=== PATIENT | male | born 1965 | race American Indian/Alaskan Native ===

== ENCOUNTER 2021-01-13 06:05 | Day surgery (SDC) | payer BC ==
[~2021-01-13 06:05] MED LIST: ceFAZolin/Water 2 GM/20 ML 2 GM/20 ML SYRINGE IV NR
[2021-01-13] MEDS ORDERED: SODIUM CHLORIDE 0.9% 1000 ML 1,000 ML ONE (06:15)
[2021-01-13 07:04] LABS: Hematocrit 31.6 % (35.5-45.6); Hemoglobin 10.5 gm/dl (11.8-15.2); Mean Corpuscular HGB Conc 33 % (32-34); Mean Corpuscular Volume 82 fl (84-94); Platelet Count 272 K/mm3 (140-440); Red Blood Count 3.84 M/mm3 (3.65-5.03); Red Cell Distribution Width 19.2 % (13.2-15.2)
[2021-01-13 07:14] LABS: Calcium 9.3 mg/dL (8.4-10.2)
[2021-01-13] MEDS ORDERED: HYDROmorphone 1 MG/1 ML INJ IV PRN ×2 (07:20)
[2021-01-13] MEDS ORDERED: ONDANSETRON 4 MG/2 ML INJ IV PRN (07:20)
[2021-01-13] MEDS ORDERED: fentaNYL 100 MCG/2 ML INJ IV NR (07:20)
--- NOTE | 2021-01-13 07:22 | Anesthesia Day of Surgery ---
Anesthesia Day of Surgery - Day of Surgery Patient Examined: Yes Patient H&P Reviewed: Yes Patient is NPO: Yes
--- NOTE | 2021-01-13 07:23 | Anesthesia Consultation ---
Anesthesia Consult and Med Hx Date of service: 01/13/21 - Airway Anesthetic Teeth Evaluation: Chipped ROM Head & Neck: Adequate Mental/Hyoid Distance: Adequate Mallampati Class: Class II Intubation Access Assessment: Good - Pre-Operative Health Status ASA Pre-Surgery Classification: ASA3 Proposed Anesthetic Plan: General (BLOCK; GA if needed) - Pulmonary Hx Smoking: No Hx Asthma: No Hx Respiratory Symptoms: No (+2FS) COPD: No Hx Pneumonia: Yes (HAD COVID 2019.HAD TEST IN 2020[NEG]) Hx Sleep Apnea: No (SNORES) - Cardiovascular System Hx Hypertension: Yes Hx Heart Attack/AMI: No Hx Pacemaker: No Hx Internal Defibrillator: No Hx Heart Murmur: No - Central Nervous System Hx Neuromuscular Disorder: Yes (Blind OS) Hx Seizures: No Hx Back Pain: Yes (OCC.) Hx Psychiatric Problems: No - Endocrine Hx Renal Disease: Yes (Last HD yesterday) Hx End Stage Renal Disease: Yes Hx Cirrhosis: No Hx Liver Disease: No Hx Non-Insulin Dependent Diabetes: Yes - Hematic Hx Anemia: No Hx Sickle Cell Disease: No - Other Systems Hx Alcohol Use: Yes (OCC. WINE) Hx Substance Use: No Hx Cancer: No Hx Obesity: No
[2021-01-13] MEDS ORDERED: BUPIVACAINE/PF (0.5%) 5 MG/1 ML 30 ML VIAL INFILTRATI ONE (07:25)
[2021-01-13] MEDS ORDERED: MIDAZOLAM 2 MG/2 ML INJ ONE (07:26)
[2021-01-13] MEDS ORDERED: SODIUM CHLORIDE 0.9% 1000 ML 1,000 ML IV SCH (07:30)
[2021-01-13] MEDS ORDERED: fentaNYL 100 MCG/2 ML INJ ONE (07:59)
[2021-01-13] MEDS ORDERED: KETAMINE/STERILE WATER 50 MG/ML SYRINGE ONE (08:00)
[2021-01-13] MEDS ORDERED: MIDAZOLAM 2 MG/2 ML INJ IV NR (08:00)
[2021-01-13] MEDS ORDERED: propofoL 200 MG/20 ML VIAL IV ONE ×3 (08:00→08:37)
[2021-01-13] MEDS ORDERED: LIDOCAINE PF 100 MG/5 ML (CARDIAC SYRINGE) IV ONE (09:13)
[2021-01-13] MEDS ORDERED: PHENYLEPHRINE/NS 1,000 MCG/10 ML SYRINGE (OR USE) IV ONE (09:13)
[2021-01-13] MEDS ORDERED: SODIUM CHLORIDE 0.9% IRR 1,500 ML BOTTLE IR ONE (09:21)
[2021-01-13] MEDS ORDERED: HEPARIN 10,000 UNITS/10 ML VIAL IV ONE (09:22)
[2021-01-13] MEDS ORDERED: SODIUM CHLORIDE 0.9% 500 ML IVPB IRRIGATION ONE (09:22)
--- NOTE | 2021-01-13 10:30 | Short Stay Summary ---
Short Stay Documentation Date of service: 01/13/21 Narrative H&P: See H&P - History H&P: obtained from office - Allergies and Medications Current Medications: Allergies No Known Allergies Allergy (Unverified 01/07/21 15:21) Home Medications Medication Instructions Recorded Confirmed Last Taken Type Atorvastatin 40 mg PO DAILY 01/08/21 01/13/21 01/12/21 20:00 History Glimepiride 1 mg PO DAILY 01/08/21 01/13/21 01/12/21 09:00 History Insulin Glargine 15 units SQ DAILY 01/08/21 01/13/21 01/12/21 09:00 History Wesly Multi For Men Tablet 1 tab PO DAILY 01/08/21 01/13/21 01/12/21 09:00 History Metoprolol [Lopressor TAB] 25 mg PO BID 01/08/21 01/13/21 01/12/21 17:00 History amLODIPine 10 mg PO DAILY 01/08/21 01/13/21 01/12/21 09:00 History Active Medications Hydromorphone HCl (Hydromorphone 1 Mg/1 Ml Inj) 0.25 mg IV Q10MIN PRN PRN Reason: Pain, Moderate (4-6) Stop: 01/13/21 23:00 Hydromorphone HCl (Hydromorphone 1 Mg/1 Ml Inj) 0.5 mg IV Q10MIN PRN PRN Reason: Pain , Severe (7-10) Stop: 01/13/21 23:20 Cefazolin Sodium (Ancef/Sterile Water 2 Gm/20 Ml) 2 gm in 20 mls @ 80 mls/hr IV PREOP NR; Protocol Stop: 01/13/21 23:59 Sodium Chloride (Nacl 0.9% 1000 Ml) 1,000 mls @ 42 mls/hr IV DIRECT EMEKA Midazolam HCl (Midazolam 2 Mg/2 Ml Inj) 2 mg IV PREOP NR Stop: 01/13/21 23:59 Ondansetron HCl (Ondansetron 4 Mg/2 Ml Inj) 4 mg IV ONCE PRN PRN Reason: Nausea And Vomiting Stop: 01/13/21 13:00 - Brief post op/procedure progress note Date of procedure: 01/13/21 Pre-op diagnosis: End-Stage Renal Disease Post-op diagnosis: same Procedure: Creation of Left Brachiocephalic Arteriovenous Fistula Anesthesia: MAC, regional Surgeon: KISHAN WALKER Estimated blood loss: minimal Pathology: none Condition: stable - Disposition Condition at discharge: Good Disposition: DC-01 TO HOME OR SELFCARE Short Stay Discharge Plan Activity: other (No heavy lifting with left arm for 2 weeks. Use stress ball with left hand as often as possible.) Wound: open to air, keep clean and dry, other (Okay to wash the left arm wound with soap and water but do not soak in water for 2 weeks.) Follow up with: KISHAN WALKER MD [Staff Physician] - 14 Days Prescriptions: HYDROcodone/APAP 7.5-325 [[place] 7.5/325] 1 each PO Q6HR PRN #40 tablet PRN Reason: Pain
--- NOTE | 2021-01-13 10:31 | Operative Report ---
Operative Report Operative Report: Date of procedure: 01/13/2021 Pre-operative diagnosis: End-Stage Renal Disease Post-operative diagnosis: End-Stage Renal Disease Procedure(s): Creation of left brachial Artery to Cephalic Vein Arteriovenous Fistula Surgeon: Gary Badillo MD Drywall Sander: None Anesthesia: Regional/MAC EBL: Minimal Counts: Correct Complications: None Condition: Stable Findings: Successful creation of left brachiocephalic arteriovenous fistula with palpable thrill and palpable radial pulse at the completion of the case. Specimen: None Indications: The patient is a 55-year-old male with a history of end-stage renal disease who is currently on hemodialysis through a right internal jugular permacath. He is in need of long-term dialysis access and was found to be a suitable candidate for creation of a left arm arteriovenous fistula. He was given the risk, benefits, and alternative procedures and consented to the procedure. Description of Procedure: The patient had a regional block of the patient's left arm was performed in the preoperative area prior to being transported to the operating room. Once the regional block was performed the patient was transported to the operating room and adequate sedation was given. When the patient was sedated a timeout was performed and the patient's left arm was then prepped and draped in normal sterile fashion. A transverse incision was then made and carried down to the cephalic vein using sharp dissection. The vein was dissected out both proximally and distally and suture ligated and divided distally. I flushed the vein with heparinized saline and flow was controlled with a bulldog clamp. I then dissected out the brachial artery through this incision circumferentially both proximal and distal and controlled the artery with vessel loops. I systemically heparinized the patient with 3000 units of heparin IV and used angl ed DeBakey clamps to control flow through the artery. I created an arteriotomy using an 11 blade and Fortune scissors. I created an end to side anastomosis between the cephalic vein and brachial artery using a 6-0 Prolene in running fashion. Prior to completing the anastomosis I flashed the artery both proximally and distally and then flushed the anastomosis with heparinized saline to remove any debris. I then completed the anastomosis and removed all clamps allowing flow into the fistula which had an adequate thrill. I achieved hemostasis with a combination of Quick Clot and electrocautery. Once hemostasis had been achieved I closed the wound in 2 layers using a 3-0 Vicryl in a running fashion in the deep dermal layer and a 4-0 Monocryl in running fashion in the subcuticular layer. I then dressed the wound with Dermabond. The patient tolerated the procedure well. All sponge, needle, and instrument counts were correct. The patient was taken to the recovery area in stable condition.
[2021-01-13 12:17] VITALS: BP 125/78
--- NOTE | 2021-01-13 19:19 | Post Anesthesia Evaluation ---
- Post Anesthesia Evaluation Patient Participated: Yes Airway Patent: Yes Stable Respiratory Function: Yes Nausea/Vomiting: No Temp > 96.8F: Yes Pain Manageable: Yes Adequeate Hydration: Yes Anesthesia Complications: No Block Receding Appropriately: Yes Patient on Ventilator: No
== END 2021-01-13 12:10 | disposition home or self-care (01) ==
LOC: OR 06:05
PROVIDERS: ATTEND Surgery Vascular Surgery
DX: I12.0 Hypertensive chronic kidney disease with stage 5 chronic kidney disease or end stage renal disease (principal); E11.22 Type 2 diabetes mellitus with diabetic chronic kidney disease; N18.6 End stage renal disease; E78.00 Pure hypercholesterolemia, unspecified; M19.90 Unspecified osteoarthritis, unspecified site; D50.9 Iron deficiency anemia, unspecified; Z72.89 Other problems related to lifestyle; Z87.01 Personal history of pneumonia (recurrent); Z98.890 Other specified postprocedural states; Z79.899 Other long term (current) drug therapy; Z79.4 Long term (current) use of insulin
CPT/HCPCS: 36415; 36821; 64415; 80048; 82962; 85027; J0690; J1644; J2001; J2250; J2370; J2704; J3010; J7030; J7040; 64450; J3490

== ENCOUNTER 2021-08-13 06:27 | Day surgery (SDC) | payer BC, MEDICARE ==
[2021-08-13] MEDS ORDERED: SODIUM CHLORIDE 0.9% 500 ML 500 ML IV SCH (08:00)
[2021-08-13] MEDS ORDERED: HEPARIN/NS 5000 UNIT/500ML 1,000 ML IR ONE (08:27)
[2021-08-13] MEDS ORDERED: fentaNYL 100 MCG/2 ML INJ ONE (08:28)
[2021-08-13] MEDS ORDERED: LIDOCAINE (2%) 20 MG/1 ML VIAL 20 ML MDV INFILTRATI ONE (08:28)
[2021-08-13 09:07] LABS: INR 0.94 (0.87-1.13); Partial Thromboplastin Time 32.2 Sec. (24.2-36.6)
[2021-08-13] MEDS ORDERED: ONDANSETRON 4 MG/2 ML INJ ONE (09:11)
[2021-08-13 09:12] LABS: Hematocrit 35.8 % (35.5-45.6); Hemoglobin 11.4 gm/dl (11.8-15.2); Mean Corpuscular HGB Conc 32 % (32-34); Mean Corpuscular Volume 85 fl (84-94); Platelet Count 386 K/mm3 (140-440); Red Cell Distribution Width 18.7 % (13.2-15.2)
[2021-08-13] MEDS ORDERED: ONDANSETRON 4 MG/2 ML INJ IV ONE (09:29)
[2021-08-13 09:57] LABS: Calcium 9.3 mg/dL (8.4-10.2)
[2021-08-13] MEDS: MIDAZOLAM 2 MG/2 ML INJ ONE ×2 (10:35→11:15)
[2021-08-13] MEDS ORDERED: hydrALAZINE 20 MG/1 ML INJ ONE (10:45)
[2021-08-13] MEDS ORDERED: ALTEPLASE 2 MG INJ ONE (10:47)
[2021-08-13] MEDS ORDERED: WATER FOR INJ Sterile (PF) 10 ML ONE (10:47)
[2021-08-13] MEDS: HEPARIN 10,000 UNITS/10 ML VIAL ONE ×2 (10:51→11:48)
--- NOTE | 2021-08-13 12:53 | Short Stay Summary ---
Short Stay Documentation Date of service: 08/13/21 Narrative H&P: See H&P - History H&P: obtained from office - Allergies and Medications Current Medications: Allergies No Known Allergies Allergy (Unverified 01/07/21 15:21) Home Medications Medication Instructions Recorded Confirmed Last Taken Type Atorvastatin 40 mg PO DAILY 01/08/21 08/13/21 08/12/21 History 1 TAB Wesly Multi For Men Tablet 1 tab PO DAILY 01/08/21 08/13/21 08/12/21 History 1 TAB Metoprolol [Lopressor TAB] 25 mg PO BID 01/08/21 08/13/21 08/12/21 History 25 MG amLODIPine 10 mg PO DAILY 01/08/21 08/13/21 08/12/21 History 10 MG Active Medications Sodium Chloride (Nacl 0.9% 500 Ml) 500 mls @ 50 mls/hr IV DIRECT EMEKA Stop: 08/13/21 20:00 - Brief post op/procedure progress note Date of procedure: 08/13/21 Pre-op diagnosis: Complications of Dialysis Access Post-op diagnosis: same Procedure: 1. Ultrasound Guided Access Left Arm Arteriovenous Fistula with 7 Dutch Sheath Venous 2. Access Left Arm Arteriovenous Fistula with 6 Dutch Sheath Arterial 3. Diagnostic Fistulagram with Central Venogram 4. Percutaneous Pharmacomechanical Thrombectomy with 6 mg TPA, Trertolla Device, and 6 Dutch Multipurpose Guide Catheter 5. Angioplasty and Stent of Left Arm Arteriovenous Fistula with 8 x 100 Calvin Balloon, 7 x10 cm & 8 x 5 cm Viabahn Stent Grafts in the Venous Outflow, and a 6 x 40 Conquest in the Arterial Inflow 6. Catheter in Left Brachial Artery 7. Diagnostic Left Upper Extremity Arteriogram 8. Radiologic Supervision with Interpretation 9. Monitored Moderate Sedation (Total Anesthesia Time: 119 Minutes) Anesthesia: local, other (Monitored Moderate Sedation) Surgeon: KISHAN WALKER Estimated blood loss: minimal Pathology: none Condition: stable - Disposition Condition at discharge: Good Disposition: 01 HOME / SELF CARE / HOMELESS Short Stay Discharge Plan Activity: other (Do Not use left arm fistula until cleared by vascular surgeon) Wound: remove dressing (in 24 hours), other (After removung the dressings, okay to wash the left arm with soap and water but do not soak in water for 2 weeks.) Follow up with: KISHAN WALKER MD [Staff Physician] - 14 Days Prescriptions: Apixaban [Eliquis] 5 mg PO BID #60 tablet HYDROcodone/APAP 5-325 [[place] 5/325] 1 each PO Q4HR PRN #24 tablet PRN Reason: Pain Clopidogrel [Plavix] 75 mg PO QDAY #90 tablet
[2021-08-13] MEDS ORDERED: CLOPIDOGREL 300 MG TAB PO ONE (13:00)
--- NOTE | 2021-08-13 13:00 | Operative Report ---
Operative Report Operative Report: Date of Procedure: 08/13/2021 Pre-operative Diagnosis: Complications of Dialysis Access Post-operative Diagnosis: Same Procedure(s): 1. Ultrasound Guided Access Left Arm Arteriovenous Fistula with 7 [place] Sheath Venous 2. Access Left Arm Arteriovenous Fistula with 6 [place] Sheath Arterial 3. Diagnostic Fistulagram with Central Venogram 4. Percutaneous Pharmacomechanical Thrombectomy with 6 mg TPA, Trertolla Device, and 6 [place] Multipurpose Guide Catheter 5. Angioplasty and Stent of Left Arm Arteriovenous Fistula with 8 x 100 Haines Balloon, 7 x10 cm & 8 x 5 cm Viabahn Stent Grafts in the Venous Outflow, and a 6 x 40 Conquest in the Arterial Inflow 6. Catheter in Left Brachial Artery 7. Diagnostic Left Upper Extremity Arteriogram 8. Radiologic Supervision with Interpretation 9. Monitored Moderate Sedation (Total Anesthesia Time: 119 Minutes) Surgeon: Gary Badillo M.D. Congressional Aide: Zachary Anesthesia: Monitored Moderate Sedation Total Anesthesia Time: 119 Minutes EBL: Minimal Counts: Correct Complications: None Condition: Stable Specimen: None Indication: The patient is a 55-year-old male with a history of end-stage renal disease who had a creation of a left brachiocephalic arteriovenous fistula. There have been using one needle to cannulate the fistula while using one port of his permacath for dialysis. He has been complaining of pulling clot while on dialysis and he was scheduled to be seen for possible intervention however he presented with a thrombosed arteriovenous access. He is in need of a diagnostic fistulogram with possible intervention. He was given the risk, benefits, and alternative procedures and consented to the procedure. Angiographic Findings: The diagnostic fistulogram revealed thrombus throughout the fistula. The fistula was diffusely stenotic ranging from 75 to 85% stenosis. There is a stent graft within the cephalic arch with thrombus as well as occlusion of the outflow of the stent graft. The central venous system was patent without evidence of flow-limiting stenosis. The diagnostic left upper extremity angiogram revealed the brachial artery was patent without evidence of flow-limiting stenosis. The proximal radial and ulnar arteries were patent without evidence of flow-limiting stenosis. The arterial anastomosis of the fistula was patent however there was thrombus in the remainder of the arterial inflow the fistula with approximately 99% stenosis within the arterial inflow and a short segment. After intervention the fistula was patent with brisk flow throughout. There was approximately 25 to 30% residual in multiple sections of the fistula. There was minimal residual thrombus within the fistula. There was no evidence of distal emboli in the brachial, radial, or ulnar arteries at the completion of the case. Description of Procedure: The patient was brought to the Cardroom Plastic Card Grader and laid in supine position. After a timeout was performed his left arm was prepped and draped in normal sterile fashion. Lidocaine was used to anesthetize the skin and soft tissue overlying the fistula, near the arterial inflow, and a 21-gauge micropuncture needle was used with ultrasound guidance to access the fistula towards the venous outflow. A 0.018 micropuncture wire was advanced into the fistula and after removing the needle a 7 [place] sheath was placed by Seldinger technique. A small amount of contrast was used to perform a diagnostic fistulogram with the previously described findings. I advanced the 0.035 Bentson wire and vertebral catheter through the fistula and into the occluded stent graft within the cephalic arch was eventually able to traverse the occluded stent graft and advanced into the c entral venous system. I performed a diagnostic venogram within the central venous system with the previously described findings. At this point the patient was systemically heparinized with 5000 units of heparin IV. This was redosed with an additional 2000 units a 45 minutes. I exchanged the Bentson wire for a 0.035 glide advantage wire and advanced this into the inferior vena cava. I injected 6 mg of TPA into the fistula and allow this to dwell for approximately 10 minutes. I performed angioplasty of the stent graft, in the cephalic arch, with an 8 x 100 Haines Balloon. I readvanced the vertebral catheter into the central venous system and change the glide advantage wire for 0.014 Choice PT wire and then performed angioplasty of the venous outflow of the fistula with a 6 x 100 Angisculpt Balloon however this ruptured so I performed angioplasty of the remainder of the fistula using a 5 x 20 Cutting Balloon. I followed this with angioplasty of the fistula using a 6 x 120 EverCross Balloon. I then performed a fistulogram revealing approximately 80% residual stenosis in the venous outflow as well as a significant amount of thrombus within the stent graft. I used a Trerotola device to morcellate the thrombus within the stent graft and then I advanced a 6 [place] Multipurpose Guide Catheter into the stent graft and aspirated the thrombus. The follow-up fistulogram revealed minimal residual thrombus within the stent graft. I then aspirated thrombus from the fistula and performed a follow-up fistulogram which revealed the 80% residual stenosis within the venous outflow of the fistula as well as approximately 50% residual stenosis within the cannulation zone of the fistula. I performed additional angioplasty with the 6 x 120 EverCross Balloon there is reduced the stenosis within the cannulation zone to approximately 25% however the stenosis within the venous outflow, near the cephalic arch remained at approximately 75%. I decided to place a stent graft in this area. I exchanged the Choice PT wire for a 0.018 V 18 Wire and advanced a 7 x 10 cm Viabahn Stent Graft into the cephalic vein, leaving a slight gap so that I could then place the 8 x 5 cm Viabahn Stent Graft to bridge the gap. I postdilated the stent graft with the 8 x 100 Haines Balloon which resulted in less than 15% residual stenosis. I then used lidocaine to anesthetize the skin and soft tissue overlying the fistula near the venous outflow and used a 21-gauge micropuncture needle to access the fistula towards the arterial inflow. I advanced a 0.018 micropuncture wire into the fistula and after removing the needle placed a 6 [place] sheath by standard technique. I advanced a vertebral catheter and 0.035 floppy Glidewire into the brachial artery. I performed a diagnostic angiogram with the previously described findings. I advanced a 0.035 J-wire into the brachial artery and then performed angioplasty of the arterial inflow using the 6 x 120 EverCross balloon which resulted in less than 15% residual stenosis in the majority of the arterial inflow however there was a short segment that was unable to be broken with the EverCross balloon so I used a 6 x 40 Conquest Balloon to perform angioplasty which resulted in less than 10% residual stenosis in the segment. I advanced the vertebral catheter into the brachial artery and performed an angiogram which revealed a large amount of thrombus near the venous outflow. I used a teratology to morcellate this thrombus and then was able to aspirate it to the 6 and 7 [place] sheaths. Once I performed aspiration the patient devel oped a thrill in the fistula. I advanced the vertebral catheter back into the brachial artery and performed a final angiogram which revealed brisk flow of contrast through the fistula with 20 to 25% residual stenosis in the cannulation zone of the fistula however the remainder of the fistula had less than 15% residual stenosis. There was minimal residual thrombus within the fistula. There was no evidence of distal emboli within the brachial, radial, or ulnar artery. At this point I removed all catheters and wires used 4-0 chromic in pressuring fashion to close each entry site after removing the sheaths. Sterile dressings were then applied to the entry sites and the patient was transported to the recovery area in stable condition.
[2021-08-13] MEDS ORDERED: APIXABAN 5 MG TAB PO ONE (14:00)
[2021-08-13 14:43] VITALS: BP 147/88
== END 2021-08-13 06:28 | disposition home or self-care (01) ==
LOC: CATHLABREC 06:27
PROVIDERS: ATTEND Surgery Vascular Surgery
DX: I12.0 Hypertensive chronic kidney disease with stage 5 chronic kidney disease or end stage renal disease (principal); N18.6 End stage renal disease; E11.22 Type 2 diabetes mellitus with diabetic chronic kidney disease; E78.00 Pure hypercholesterolemia, unspecified; M19.90 Unspecified osteoarthritis, unspecified site; Z79.899 Other long term (current) drug therapy; Z98.890 Other specified postprocedural states
CPT/HCPCS: 36415; 36906; 80048; 82962; 85027; 85610; 85730; 99156; 99157; C1725; C1757; C1769; C1874; C1887; C1894; J0360; J1644; J2250; J2405; J2997; J3010; J3490; J7040; Q9967